=== PATIENT | male | born 1965 | race Caucasian/White ===

== ENCOUNTER 2025-09-04 10:20 | Emergency (ER) | payer OTHER, SELFPAY ==
[2025-09-04] MEDS: TORADOL 15 MG IV (10:49)
[2025-09-04] MEDS: ZOFRAN 4 MG IV (10:49)
[2025-09-04] MEDS: NSS 1000 IV (10:50)
--- NOTE | 2025-09-04 10:56 | ED.GENMED ---
History of Present Illness
General
Chief Complaint: Flank Pain
Source: patient and spouse
Exam Limitations: none
Time Seen by Provider: 09/04/25 10:32
Nursing documentation reviewed up to this point in time: agreed with
History of Present Illness
History of Present Illness:
59-year-old male with a past medical history of hyperlipidemia who presents to the emergency department with his for evaluation of flank pain. Patient reports onset of symptoms in the middle of the night last night; he says symptoms woke him
up at around 3 AM. Symptoms have been constant since that time. He reports pain in the left flank radiates towards the left lower abdomen. No clear triggering or relieving factors noted. He denies any trauma or injury. He has associated nausea
no vomiting. No diarrhea or constipation. Denies any dysuria, hematuria, change in urinary frequency. Denies fever or chills. He denies similar symptoms in the past.
Review of Systems
Review of Systems
All Other Systems: ROS reviewed and negative except as documented in HPI and ROS
Constitutional: Denies fever or chills
Respiratory: Denies trouble breathing
Cardiac: Denies chest pain
ABD/GI: Reports abdominal pain and nausea; Denies vomiting, diarrhea or constipated
: Reports flank pain; Denies dysuria or frequency
Musculoskeletal: Denies neck pain
Neurological: Denies dizzy or headache
Phy Exam
Physical Exam
Physical Exam:
General: Awake, alert, oriented x3; appears in pain, shifting around the room cannot find position of comfort o acute distress
Head: Normocephalic, atraumatic
Eyes: Conjunctiva normal, sclera anicteric
Throat: Airway intact, handling secretions
Neck: Trachea midline, supple without meningismus
Lungs: Clear to auscultation bilaterally, no wheezing, rales, rhonchi
Heart: Regular rate and rhythm, no murmurs, gallops, or rubs
Abd: Soft, non distended, minimally tender left lower quadrant
Back: No signs of trauma the back or flank, no rash in the area of concern, no CVA tenderness, no tenderness in the paraspinal musculature or in the midline thoracic or lumbar spine
Neuro: Cranial nerves grossly intact, speech fluid, ambulatory
Skin: no rash in area of concern
Extremities: No edema in extremities, warm and well-perfused
Scores
Heart Failure Risk
Heart Failure Risk Score: Not Applicable
Heart Score for Chest Pain Patients
STEMI patient?: Not applicable
Withdrawal Assessment of Alcohol
Withdrawal Assessment Completed?: Not applicable
Course
Orders/Labs/Results
Orders:
Orders
09/04/25 10:34
CT Abd/pel Without Iv Or Oral Urgent
Comment:
Reason For Exam: left flank pain
0.9% Sodium Chloride 1000 ml [Nss] 1,000 ml IV BOLUS
Ketorolac [Toradol] 15 mg IV NOW STA
Ondansetron Injectable [Zofran] 4 mg IV NOW STA
09/04/25 10:37
HYDROmorphone [Dilaudid] 0.5 mg IV PRN PRN
09/04/25 10:45
Complete Blood Count/With Diff Urgent
Comprehensive Metabolic Panel Urgent
Lipase Urgent
Urinalysis Reflex To Culture Urgent
Date Specimen was Collected: 09/04/25
Time Specimen was Collected: 10:41
Urine Microscopic Reflex Cult Urgent
Abnormal Lab Results
09/04/25
10:45
MCH 31.4 H pg
(27.0-31.0)
Absolute Neuts (auto) 7.8 H 10^3/uL
(1.4-6.5)
Lymphocytes % 18.3 L %
(20.5-51.1)
Glucose 132 H mg/dl
(70-99)
Urine Ketones 3+ A
(Negative)
Ur Occult Blood Reflex 4+ A
(Negative)
Urine RBC 26-30 A /HPF
(0-2)
Urine Bacteria (Reflex) Few A
(Negative)
Urine Albumin (Reflex) 2+ A
(Neg - Trace)
09/04/25 10:45
09/04/25 10:45
Vital Signs
Initial and Last Documented VS:
Initial Vital Signs
Temp Pulse Resp Pulse Ox
36.4 C 69 18 95
09/04/25 10:24 09/04/25 10:24 09/04/25 10:24 09/04/25 10:24
Last Documented Vital Signs
Temp Pulse Resp BP Pulse Ox
36.4 C 69 18 123/88 94
09/04/25 10:24 09/04/25 10:24 09/04/25 10:24 09/04/25 11:12 09/04/25 13:00
MDM/Problems Addressed
Differential Diagnosis Includes:
Nephrolithiasis, diverticulitis, bowel obstruction, muscular strain/back spasms, AAA
MDM/Problems Addressed:
59-year-old male presents to the ER for evaluation of left flank pain started suddenly in the middle of the night and has been constant. Vitals and exam are as above. Clinical picture seems consistent with nephrolithiasis. Plan to place an IV
check labs including a CBC and a CMP, lipase. Will check urinalysis. Sent for CT abdomen. Provide fluids and pain control, antiemetic. Reassess after the above.
Patient reports symptomatic improvement with pain medications, now resting comfortably in bed. Initial labs reviewed and showed no clinically significant abnormalities. Awaiting results of urine and CT. Vital signs have been stable.
Urinalysis negative for infection but does show positive blood. 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 Patient's pain is very well-controlled here. Does not appear
to be septic. I think he is a reasonable candidate for a trial of passage. I had a long discussion with the patient about diagnosis. Provided a strainer and advised him to drink plenty of fluids. Will prescribe Flomax to take daily until stone
passage. Advised him to try and catch the stone and to follow-up with urology on an outpatient basis. We spoke to him about pain control strategy. Spoke about return precautions. He feels very comfortable to this plan. All questions answered.
*Radiology
Radiology exam reviewed: radiology read reviewed
*Pulse Oximetry
SaO2: 95
Oxygen Mode of Delivery: Room air
Patient hypoxic: no (95%)
*Critical Care Note
Total Time (30-74mins, 75-104mins- exclusive of procedures): Not Applicable
Data Reviewed
Source: patient and spouse
ED Attending Note
-
Portions of this chart may have been created with voice recognition software.� Occasional wrong word or��sound alike� substitutions may have occurred due to the inherent limitations of voice recognition software.
Discharge Plan
Departure
Patient Disposition: Home (Routine Discharge)
Date of Disposition: 09/04/25
Time of Disposition: 15:11
Patient with high blood pressure during this ER visit?: No
Discharge Problem:
Left nephrolithiasis
Instructions: Kidney Stones (DC), How to Strain Your Urine
Prescriptions:
New
tamsulosin 0.4 mg capsule
0.4 mg PO DAILY Qty: 20 0RF
oxycodone 5 mg tablet
5 mg PO Q6H PRN (Reason: Pain) Qty: 14 0RF
Referrals:
Jorge Nova PA-C [Family Provider, General]
Grant Kirkland MD [Active, Urology] - Call in 1-3 days for appt
Activity Restrictions/Additional Instructions:
You should drink plenty of fluids. You were prescribed a medicine called Flomax as well which you should take once daily until you passed the stone. You should strain your urine and try to catch the stone to bring to your urology appointment.
Passing a kidney stone is painful and you should take pain medication to help manage her symptoms. You should take Tylenol and ibuprofen on a regular basis (every 6 hours) to help keep on top of your pain. You were prescribed a stronger pain
medication called oxycodone to help when pain becomes so severe that these medications are not working.
You should call to schedule an appoint with the urologist to soon as possible to follow-up on your kidney stone.
If you are not able to manage your symptoms at home or if you develop any fevers or any other acute symptoms that are concerning to you please return to the ER to be reassessed.
Thank you for visiting the Emergency Department at [facility].
1. Please schedule a follow up appointment as directed. Call first thing tomorrow morning to make an appointment.
2. If indicated, please take your medications as instructed and indicated on discharge paperwork.
3. If any of your symptoms do not improve, or persist, or become more severe within 6-12 hours, please return to the emergency department for further care.
4. Please return to the emergency department if you develop a headache, neck pain/stiffness, fever greater than 100.4F, chest pain, shortness of breath, persistent nausea, vomiting, slurred speech, difficulty walking, numbness/tingling, weakness,
signs of infection or any other symptoms that are worrisome to you.
Please call [phone] if you have any questions.
Interventions
Interventions:
*Risk Screen - Suicide Last Done: 09/04/25 10:24
*General Assessment Last Done: 09/04/25 10:54
*Neglect/Abuse Screening Last Done: 09/04/25 10:54
*ED- Fall Risk Assessment Last Done: 09/04/25 10:54
*ED COVID-19 Vaccine History Last Done: 09/04/25 10:54
*ED Influenza Vaccine History Last Done: 09/04/25 10:54
BW-Zyfgsb-Hriqbdsknm Assessment Last Done: 09/04/25 10:54
ED-Male Genitourinary Assessment Last Done: 09/04/25 10:54
Discharge Date and Time
Print Language: GERMAN
[2025-09-04 11:05] LABS: Hematocrit 44.5 % (39.0-52.0); Hemoglobin 15.9 g/dL (13.0-18.0); Mean Corp Hgb Conc. 35.7 g/dL (33.0-37.0); Mean Corpuscular Volume 87.8 fL (80.0-94.0); Nucleated Red Blood Cells % 0 % (-); Platelet Count 302 10^3/uL (130-400); Red Cell Dist. Width 12.6 % (11.5-14.5)
[2025-09-04 11:12] VITALS: BP 123/88
[2025-09-04 11:20] LABS: ALT (SGPT) 43 U/L (0-50); AST (SGOT) 34 U/L (17-59); Albumin 4.7 g/dl (3.5-5.0); Alkaline Phosphatase 70 U/L (38-126); Blood Urea Nitrogen 20 mg/dl (9-20); Calcium 10.0 mg/dl (8.4-10.2); Carbon Dioxide 25 mmol/L (22-30); Chloride 103 mmol/L (98-107); Glucose 132 mg/dl (70-99); Lipase 56 U/L (23-300); Potassium 4.3 mmol/L (3.5-5.1); Sodium 135 mmol/L (135-145); Total Protein 7.8 g/dl (6.3-8.2); eGFR > 60.00
[2025-09-04] MEDS: DILAUDID 0.5 MG IV (12:05)
[2025-09-04 13:25] LABS: Urine Character Clear (Clear)
[2025-09-04 13:46] LABS: Urine Red Blood Cell 26-30 /HPF (0-2); Urine Squamous Cell 0-2 /LPF (Few)
[2025-09-04] MEDS: FLOMAX 0.4 MG PO (15:22)
== END 2025-09-04 15:29 | disposition home or self-care (01) ==
LOC: EMR 10:20
PROVIDERS: EMERGENCY PHYSICIAN Emergency Medicine; FAMILY PHYSICIAN Physician Assistant
DX: N20.2 Calculus of kidney with calculus of ureter (principal); E78.5 Hyperlipidemia, unspecified
CPT/HCPCS: 99284; 96374; 96375 ×2; 96361; 74176; 80053; 81003; 81015; 83690; 85025